=== PATIENT | female | born 1975 | race Caucasian/White ===

== ENCOUNTER 2018-01-25 05:33 | Day surgery (SDC) | payer BC ==
[2018-01-25] VITALS (11 sets, daily range): BP systolic 125–137; BP diastolic 65–90; PULSE 61–98; TEMP 97.8–98
[~2018-01-25] VITALS: Ht 165.1 cm; Wt 95.7 kg
[2018-01-25] MEDS ORDERED: HCTZ12.5TAB PO (06:38)
[2018-01-25] MEDS ORDERED: PRIL40 PO (06:39)
[2018-01-25] MEDS ORDERED: NORTREL 35 MCG-1 TA1 PO (06:41)
[2018-01-25] MEDS ORDERED: BIOCLEANSE PO (06:42)
[2018-01-26 00:08] VITALS: BP 134/65; PULSE 61; TEMP 98.2
[2018-01-26 03:52] VITALS: BP 119/60; PULSE 73; TEMP 98.3
[2018-01-26 08:25] VITALS: BP 153/72; PULSE 61; TEMP 98.2
[2018-01-26 11:20] VITALS: BP 127/65; PULSE 60; TEMP 97.2
[2018-01-26 15:57] VITALS: BP 136/72; PULSE 61; TEMP 98.2
== END 2018-01-26 18:03 | disposition home or self-care (01) ==
LOC: SDCO 05:33 → SURG 09:45 → SDCO 01-26 18:03
DX: K21.9 Gastro-esophageal reflux disease without esophagitis (principal); K44.9 Diaphragmatic hernia without obstruction or gangrene; I10 Essential (primary) hypertension; E78.00 Pure hypercholesterolemia, unspecified; Z80.6 Family history of leukemia; G43.909 Migraine, unspecified, not intractable, without status migrainosus
CPT/HCPCS: OP; A9284; C1713; J0690; J1100; J1170; J1885; J2405; J2704; J3010; J7120